=== PATIENT | female | born 1990 | race Caucasian/White ===

== ENCOUNTER 2017-05-27 22:06 | Emergency (ER) | payer OTHER ==
[2017-05-27 22:19] VITALS: BP 131/77; PULSE 109; RESP 20; TEMP 100.3
[2017-05-27] MEDS ORDERED: TOPICAL SKIN ADHESIVE 1 EACH AMP TOPICAL ONE (22:21)
--- NOTE | 2017-05-27 22:24 | ED ---
General Adult HPI - General Chief complaint: Wound/Laceration Stated complaint: [facility] Laceration rt index Time Seen by Provider: 05/27/17 22:19 Source: patient, RN notes reviewed Mode of arrival: ambulatory Limitations: no limitations - History of Present Illness Initial comments: Patient 26-year-old female who presents emergency room today with a chief complaint of laceration to the right index finger. She does admit that she at work when she picked up a gold causing a laceration to the distal aspect. She states her tetanus is up-to-date. She denies any other complaints or associated symptoms. Patient denies any recent fever, chills, shortness of breath, chest pain, back pain, abdominal pain, nausea or vomiting, numbness or tingling, dysuria or hematuria, constipation or diarrhea, headaches or visual changes, or any other complaints. - Related Data Allergies Allergy/AdvReac Type Severity Reaction Status Date / Time Penicillins Allergy Rash/Hives Verified 05/27/17 22:19 Review of Systems ROS Statement: Those systems with pertinent positive or pertinent negative responses have been documented in the HPI. ROS Other: All systems not noted in ROS Statement are negative. Past Medical History Past Medical History: No Reported History History of Any Multi-Drug Resistant Organisms: None Reported Past Surgical History: No Surgical Hx Reported Past Psychological History: Anxiety, Depression Smoking Status: Current every day smoker Past Alcohol Use History: Occasional Past Drug Use History: None Reported General Exam - General Exam Comments Initial Comments: General: The patient is awake and alert, in no distress, and does not appear acutely ill. Eye: Pupils are equal, round and reactive to light, extra-ocular movements are intact. No nystagmus. There is normal conjunctiva bilaterally. No signs of icterus. Ears, nose, mouth and throat: There are moist mucous membranes and no oral lesions. Neck: The neck is supple, there is no tenderness or JVD. Cardiovascular: There is a regular rate and rhythm. No murmur, rub or gallop is appreciated. Respiratory: Lungs are clear to auscultation, respirations are non-labored, breath sounds are equal. No wheezes, stridor, rales, or rhonchi. Musculoskeletal: Normal ROM, no tenderness. Strength 5/5. Sensation intact. Pulses equal bilaterally 2+. Neurological: A&O x 3. CN II-XII intact, There are no obvious motor or sensory deficits. Coordination appears grossly intact. Speech is normal. Skin: Patient does have small laceration to the distal aspect of the right index finger in the volar aspect. No Bleeding. Measures approximately 0.5 cm. Psychiatric: Cooperative, appropriate mood & affect, normal judgment. Limitations: no limitations Course Vital Signs 05/27/17 22:15 Temperature 100.3 F H Pulse Rate 109 H Respiratory 20 Rate Blood Pressure 131/77 O2 Sat by Pulse 98 Oximetry Procedures - Procedures Initial comment: Laceration cleaned here in the emergency room with saline. Wound edges approximated and closed with Dermabond. Patient tolerated well. Medical Decision Making - Medical Decision Making Patient laceration prepped and cleaned and closed with Dermabond here the emergency room. Tetanus is up-to-date. Patient will be discharged home. Disposition Clinical Impression: Finger laceration, Laceration Disposition: HOME SELF-CARE Condition: Good Instructions: Laceration (ED) Additional Instructions: Please allow the glue to fall off on its own over the next 2-5 days. Please watch for any signs of infection which may include increased pain, swelling, redness, fever or chills. Please return to emergency room for any other concerns. Referrals: Rip Valles MD [Primary Care Provider] - 1-2 days Time of Disposition: 22:23
== END 2017-05-27 22:45 | disposition home or self-care (01) ==
LOC: EC 22:06
DX: S61.210A Laceration without foreign body of right index finger without damage to nail, initial encounter (principal); F17.200 Nicotine dependence, unspecified, uncomplicated; Z88.0 Allergy status to penicillin; W26.8XXA Contact with other sharp object(s), not elsewhere classified, initial encounter; Y99.0 Civilian activity done for income or pay; Y92.69 Other specified industrial and construction area as the place of occurrence of the external cause
CPT/HCPCS: 12001; 99282

== ENCOUNTER 2023-11-01 19:25 | Emergency (ER) | payer OTHER, BC ==
--- NOTE | 2023-11-01 19:55 | XR ---
EXAMINATION TYPE: XR wrist complete RT DATE OF EXAM: 11/01/2023 7:47 PM CLINICAL INDICATION:Female, 33 years old with history of pain; COMPARISON: None TECHNIQUE: XR wrist complete RT; examined in the Frontal, navicular, lateral, and oblique. FINDINGS/IMPRESSION: 1. Acute Comminuted distal right radius fracture with dorsal angulation. 2. Acute right ulnar styloid process fracture without significant displacement.
[2023-11-01] MEDS ORDERED: SODIUM CHLORIDE 0.9% 1,000 ML IV STA (20:26)
[2023-11-01] MEDS ORDERED: HYDROmorphone 0.5 MG/0.5 ML SYRINGE IVP STA (21:12)
[2023-11-01] MEDS ORDERED: PROPOFOL 10 MG/ML 20 ML VIAL IV STA (21:17)
--- NOTE | 2023-11-01 21:23 | ED ---
Upper Extremity HPI <Thom Causey - Last Filed: 11/01/23 23:22> - General Source: patient, family, RN notes reviewed Mode of arrival: ambulatory Limitations: no limitations <Paris Gimenez - Last Filed: 11/01/23 23:48> - General Chief Complaint: Extremity Injury, Upper Stated Complaint: fall-workers comp Time Seen by Provider: 11/01/23 19:46 - History of Present Illness Initial Comments: Patient is a 33-year-old female presenting to the ER with a chief complaint of right wrist injury. Patient states she slipped on ice and fell landing on her back. Patient does not know how she fell on her wrist. Patient denies any head injury, loss of consciousness, blood thinner use. Patient denies any other injuries. She does state that as long as she is not moving it and there is ice pain is tolerable at this time. No other complaints (Paris Gimenez) - Related Data Allergies Allergy/AdvReac Type Severity Reaction Status Date / Time Penicillins Allergy Rash/Hives Verified 11/01/23 19:33 Review of Systems ROS Other: All systems not noted in ROS Statement are negative. <Thom Causey - Last Filed: 11/01/23 23:22> ROS Other: All systems not noted in ROS Statement are negative. <Paris Gimenez - Last Filed: 11/01/23 23:48> ROS Statement: Those systems with pertinent positive or pertinent negative responses have been documented in the HPI. Past Medical History Past Medical History: No Reported History History of Any Multi-Drug Resistant Organisms: None Reported Past Surgical History: No Surgical Hx Reported Past Psychological History: Anxiety, Depression Smoking Status: Current every day smoker Past Alcohol Use History: Occasional Past Drug Use History: None Reported <Paris Gimenez - Last Filed: 11/01/23 23:48> General Exam Limitations: no limitations General appearance: alert, in no apparent distress Head exam: Present: atraumatic, normocephalic, normal inspection Eye exam: Present: normal appearance, PERRL, EOMI. Absent: scleral icterus, conjunctival injection, periorbital swelling Pupils: Present: normal accommodation Neck exam: Present: normal inspection. Absent: tenderness, meningismus, lymph adenopathy Respiratory exam: Present: normal lung sounds bilaterally. Absent: respiratory distress, wheezes, rales, rhonchi, stridor Cardiovascular Exam: Present: regular rate, normal rhythm, normal heart sounds. Absent: systolic murmur, diastolic murmur, rubs, gallop, clicks Right Elbow exam: Present: normal inspection, full ROM Forearm Wrist exam: Present: tenderness, swelling, ecchymosis, deformity (Noticeable deformity to radial head), other (Pain with movement of thumb.) Neurological exam: Present: alert, oriented X3, CN II-XII intact Psychiatric exam: Present: normal affect, normal mood Skin exam: Present: warm, dry, intact, normal color. Absent: rash <aPris Gimenez - Last Filed: 11/01/23 23:48> Course Vital Signs 11/01/23 11/01/23 11/01/23 19:31 20:33 21:00 Temperature 98.3 F Pulse Rate 102 H 99 107 H Respiratory 20 20 16 Rate Blood Pressure 125/93 148/102 157/95 O2 Sat by Pulse 100 98 99 Oximetry 11/01/23 11/01/23 11/01/23 21:15 21:29 21:30 Temperature Pulse Rate 93 96 80 Respiratory 18 18 18 Rate Blood Pressure 139/95 161/97 136/68 O2 Sat by Pulse 98 99 97 Oximetry 11/01/23 11/01/23 11/01/23 21:35 21:40 21:50 Temperature Pulse Rate 96 101 H 80 Respiratory 16 16 16 Rate Blood Pressure 127/74 126/73 130/82 O2 Sat by Pulse 99 98 100 Oximetry 11/01/23 21:57 Temperature Pulse Rate 107 H Respiratory 16 Rate Blood Pressure 149/86 O2 Sat by Pulse 99 Oximetry Procedures - Procedural Sedation *Procedural Sedation Start Time: 21:29 *Procedural Sedation Stop Time: 21:59 *Risks,benefits, and alternative therapies discussed?: Yes *Patient indicates understanding of risk/benefit discussion?: Yes *Indications: fracture/dislocation reduction *Previous Adverse Reaction to Anesthesia/Sedation?: No * Testing Complete?: No Reason Test Not Complete:: Emergent Situation *ASA Class: I *Mallampati Airway Score: 2 *Time of Last PO Intake: 16:30 Preparation: bleaching machine operator applied, pulse oximeter, capnometry used, supplemental O2 applied, suction/airway equipment at bedside, IV secured Ketamine: IV Ketamine Dose: 50 IV Propofol Dose (mgs): 130 Complications: none Patient Tolerated Procedure: well <Thom Causey - Last Filed: 11/01/23 23:22> - Orthopedic Fracture Reduction Fracture #1 Consent Obtained: written consent Side: right Fracture Reduction Location: radius Analgesia: procedural sedation Technique: direct manipulation Post Reduction X-rays Demonstrate: acceptable reduction Post-Reduction Neuro Exam: intact Post-Reduction Vascular Exam: intact Splint Applied: Yes (ulnar gutter and sugar tong ) Patient Tolerated Procedure: well, no complications <Paris Gimenez - Last Filed: 11/01/23 23:48> Medical Decision Making - Radiology Data Radiology results: report reviewed, image reviewed <KennyParis tang - Last Filed: 11/01/23 23:48> - Medical Decision Making Was pt. sent in by a medical professional or institution (Dr. PA, [employer], urgent care, hospital, or retirement...) When possible be specific @ -No Did you speak to anyone other than the patient for history (EMS, parent, family, police, friend...)? What history was obtained from this source @ -No Did you review nursing and triage notes (agree or disagree)? Why? @ -I reviewed and agree with nursing and triage notes Were old charts reviewed (outside hosp., previous admission, EMS record, old EKG, old radiological studies, urgent care reports/EKG's, retirement records)? Report findings @ -No old charts were reviewed Differential Diagnosis (chest pain, altered mental status, abdominal pain women, abdominal pain men, vaginal bleeding, weakness, fever, dyspnea, syncope, headache, dizziness, GI bleed, back pain, seizure, CVA, palpatations, mental health, musculoskeletal)? @ -Differential Musculoskeletal Muscular strain, contusion, ligament sprain, fracture, arthritis, septic arthritis, bursitis, cellulitis, muscle spasm, nerve compression, DVT, arterial occlusion, herpes zoster, electrolyte abnormality, tumor.... This is not meant to be in all inclusive list EKG interpreted by me (3pts min.). @ -None X-rays interpreted by me (1pt min.). @ -Right wrist x-ray shows a comminuted distal radius fracture with dorsal angulation. There is also a right ulnar styloid process fracture without significant displacement CT interpreted by me (1pt min.). @ -None done U/S interpreted by me (1pt. min.). @ -None done What testing was considered but not performed or refused? (CT, X-rays, U/S, labs)? Why? @ -CT brain was considered but not performed due to negative head injury, loss of consciousness, blood thinner use. What meds were considered but not given or refused? Why? @ -None Did you discuss the management of the patient with other professionals (professionals i.e. , PA, [employer], lab, RT, psych nurse, social worker assistant, financial data analyst, teacher, parcel post officer, correctional case records supervisor)? Give summary @ -No Was smoking cessation discussed for >3mins.? @ -No Was critical care preformed (if so, how long)? @ -No Were there social determinants of health that impacted care today? How? (Homelessness, low income, unemployed, alcoholism, drug addiction, transportation, low edu. Level, literacy, decrease access to med. care, detention, rehab)? @ -No Was there de-escalation of care discussed even if they declined (Discuss DNR or withdrawal of care, Hospice)? DNR status @ -No What co-morbidities impacted this encounter? (DM, HTN, Smoking, COPD, CAD, Cancer, CVA, ARF, Chemo, Hep., AIDS, mental health diagnosis, sleep apnea, morbid obesity)? @ -None Was patient admitted / discharged? Hospital course, mention meds given and route, prescriptions, significant lab abnormalities, going to OR and other pertinent info. @ -Discharge. Patient is a 33-year-old female presented to ER with a chief complaint of right wrist injury. Vitals stable. History and physical exam were completed. Patient's right upper extremity was neurovascularly intact. There was noticeable deformity to radial head with mild ecchymosis present. Patient denied any head injury, loss of consciousness, blood thinner use, or other injuries. Right wrist x-ray shows a comminuted distal radius fracture with dorsal angulation. There is also a right ulnar styloid process fracture without significant displacement. Fracture was reduced by Dr. Causey with conscious sedation. Sugar-tong and ulnar gutter splints placed. Sling in place. Patient tolerated procedure well. Postreduction films show improved alignment. Patient was monitored post sedation. Patient was able to walk to bathroom without difficulty at discharge. Patient discharged with Tylenol 3's for pain control. Advised her to follow-up with orthopedics in the next 1 to 2 days. Return parameters were discussed. Patient be discharged stable condition with follow- up to orthopedics/PCP. Patient expressed understanding and agreement with care plan. Undiagnosed new problem with uncertain prognosis? @ -No Drug Therapy requiring intensive monitoring for toxicity (Heparin, Nitro, Insulin, Cardizem)? @ -No Were any procedures done? @ -Yes Diagnosis/symptom? @ -Distal right radius fracture/ulnar styloid process fracture Acute, or Chronic, or Acute on Chronic? @ -Acute Uncomplicated (without systemic symptoms) or Complicated (systemic symptoms)? @ -Uncomplicated Side effects of treatment? @ -No Exacerbation, Progression, or Severe Exacerbation? @ -No Poses a threat to life or bodily function? How? (Chest pain, [place], [place], pneumonia, PE, COPD, DKA, ARF, appy, cholecystitis, CVA, Diverticulitis, Homicidal, Suicidal, threat to staff... and all critical care pts) @ -No (Paris Gimenez) Disposition <Thom Causey - Last Filed: 11/01/23 23:22> Is patient prescribed a controlled substance at d/c from ED?: No Time of Disposition: 23:37 <Paris Gimenez - Last Filed: 11/01/23 23:48> Clinical Impression: Distal radius fracture, right Disposition: HOME SELF-CARE Instructions (If sedation given, give patient instructions): Wrist Fracture in Adults (ED), Moderate Sedation (ED) Additional Instructions: Please follow-up with orthopedics in the next 1 to 2 days. Return to ER for any new or worsening symptoms. Referrals: Rip Valles MD [Primary Care Provider] - 1-2 days Johan Lowe MD [STAFF PHYSICIAN] - 1-2 days
[2023-11-01] MEDS ORDERED: PROPOFOL 10 MG/ML 20 ML VIAL IV ONE (21:35)
[2023-11-01] MEDS ORDERED: KETAMINE 10 MG/ML 20 ML VIAL IV STA (21:50)
--- NOTE | 2023-11-01 22:28 | XR ---
EXAM: XR Right Forearm, 2 Views CLINICAL HISTORY: ITS.REASON XR Reason: POST REDUCTION TECHNIQUE: Frontal and lateral views of the right forearm. COMPARISON: No relevant prior studies available. FINDINGS: Bones/joints: Comminuted distal radial metaphyseal fracture with moderate angulation. Minimally displaced ulnar styloid fracture. Images taken through a splint limits fine bony detail. Soft tissues: Unremarkable. IMPRESSION: Comminuted distal radial metaphyseal fracture with moderate angulation.
[2023-11-01] MEDS ORDERED: ACET/COD 300 MG/30 MG STARTER PACK 6 TAB BTL PO STA (23:37)
[2023-11-02 00:13] VITALS: BP 135/78; PULSE 78; RESP 18; TEMP 98
== END 2023-11-02 00:07 | disposition home or self-care (01) ==
LOC: EC 19:25
DX: S52.591A Other fractures of lower end of right radius, initial encounter for closed fracture (principal); S52.611A Displaced fracture of right ulna styloid process, initial encounter for closed fracture; F17.200 Nicotine dependence, unspecified, uncomplicated; Z86.59 Personal history of other mental and behavioral disorders; Z88.0 Allergy status to penicillin; W00.0XXA Fall on same level due to ice and snow, initial encounter
CPT/HCPCS: 73090; 73110; 99284; 96374; 96375; 96361; 25605; 99152; J2704; J1170

== ENCOUNTER → 2023-11-18 | Day surgery (SDC) | payer BC, OTHER ==
[2023-11-14 15:08] VITALS: BMI 31.8
[~2023-11-18] MED LIST: ACETAMINOPHEN IV (For NPO) 1,000 MG/100 ML VIAL ONE; DEXAMETHASONE SOD PHOSPHATE 4 MG/ML 1 ML VIAL IV ONE; HYDROmorphone 0.5 MG/0.5 ML SYRINGE IVP PRN; LIDOCAINE 1%-EPI 1:100,000 20 ML VIAL ONE; MIDAZOLAM 2 MG/2 ML VIAL IV PRN; PROPOFOL 10 MG/ML 20 ML VIAL IV ONE; ROPIVACAINE 5 MG/ML 30 ML VIAL ONE; SCOPOLAMINE 1 MG/72 HR PATCH TRANSDERM ONE
[2023-11-18] MEDS: LACTATED RINGERS 1,000 ML IV SCH (11:10)
[2023-11-18] MEDS: ONDANSETRON 4 MG/2 ML VIAL IVP ONE (11:35)
[2023-11-18 11:36] VITALS: RESP 16
[2023-11-18] MEDS: BUPIVACAINE (PF) 0.5% 30 ML VIAL SQ ONE (13:00)
[2023-11-18] MEDS: LIDOCAINE 2% INJ 20 MG/ML SQ ONE (13:00)
[2023-11-18] MEDS: ceFAZolin 1,000 MG in SODIUM CHLORIDE 0.9% 1,000 ML IRRIGATION ONE ×2 (13:24→13:57)
[2023-11-18] MEDS: LACTATED RINGERS 1,000 ML IV ONE (13:57)
--- NOTE | 2023-11-18 13:58 | P.ANPRN ---
Procedure Note - Anesthesia - Nerve Block Performed Right Axillary Single Time Out Performed: Yes Date of Procedure: 11/18/23 Procedure Start Time: 12:37 Procedure Stop Time: 12:48 Indication: Requested by Surgeon Sedation Type: Awake Preparation: Sterile Prep Position: Supine Needle Gauge: 21 Ultrasound used to visualize needle placement: Yes Ultrasound used to observe medication spread: Yes Injectate: 0.5% Ropivacaine (see comment for volume) (25 mls) Blood Aspirated: No Pain Paresthesia on Injection Noted: No Resistance on Injection: Normal Image Stored and Saved: Yes Events: Uneventful and Well Tolerated
--- NOTE | 2023-11-18 14:00 | P.ANPRN ---
Procedure Note - Anesthesia - Nerve Block Performed Right Supraclavicular Single Time Out Performed: Yes Date of Procedure: 11/18/23 Procedure Start Time: 11:54 Procedure Stop Time: 12:03 Location of Patient: PreOp Indication: Acute Post-Operative Pain, Requested by Surgeon Sedation Type: Sedate with meaningful contact maintained Preparation: Sterile Prep Position: Supine Needle Types: Pajunk Needle Gauge: 21 Ultrasound used to visualize needle placement: Yes Ultrasound used to observe medication spread: Yes Injectate: 0.5% Ropivacaine (see comment for volume) (12 ml + 12ml Lidocaine 1% with epi 1/200K) Blood Aspirated: No Pain Paresthesia on Injection Noted: No Resistance on Injection: Normal Image Stored and Saved: Yes Events: Uneventful and Well Tolerated
--- NOTE | 2023-11-18 14:42 | P.OP ---
Date of Procedure: 11/18/23 Procedure(s) Performed: PREOPERATIVE DIAGNOSES: 1. Left wrist distal radius comminuted extraarticular displaced fracture 2. Left wrist ulnar styloid minimally displaced fracture POSTOPERATIVE DIAGNOSES: 1. Left wrist distal radius comminuted extraarticular displaced fracture 2. Left wrist ulnar styloid minimally displaced fracture PROCEDURES PERFORMED: 1. Left distal radius open reduction and internal fixation with volar locking plate 2. Closed treatment ulnar styloid fracture ANESTHESIA: Regional with IV sedation PHARMACEUTICAL OFFICER: Shannon Miranda PA-C (Assistance with: patient positioning, retraction, exposure, reduction, fixation, irrigation, hemostasis, closure, dressing, splint) COMPLICATIONS: None ESTIMATED BLOOD LOSS: 10 mL DISPOSITION: To post-anesthesia care unit INDICATIONS: Samanta is a 33 year old female who has had a displaced distal radius fracture and minimally displaced ulnar styloid fracture from a fall. A reduction was performed but the fracture is still displaced and shows unacceptable displacement and angulation. We have discussed options and I have recommended ORIF of the distal radius. She wishes to proceed. I discussed the steps of the surgery as well as potential risks and complications as being inclusive of, but not limited to: Bleeding, infection, scarring, discomfort, malunion, nonunion, blood vessel and/or nerve damage, need for further surgery, stiffness, tendon injury, persistence or recurrence of symptoms, complex regional pain syndrome and other risks. The patient is aware of these risks and wishes to proceed with surgery. The consent form has been signed. PROCEDURE: After appropriate consent was obtained, the patient was taken to the operating room placed in the supine position. Anesthesia was initiated, and after confirmation of adequate anesthesia, the patient was carefully positioned. Care was taken to make sure that all pressure points were adequately padded. Timeout was called, confirming patient identity, side, procedure, and antibiotics were administered. Limb was exsanguinated with an Esmarch bandage and the tourniquet was inflated to 250 mmHg. Total tourniquet time for the case was approximately 35 minutes. Incision was created just radial to the flexor carpi radialis tendon. Dissection proceeded between this tendon and the radial artery, which was carefully dissected and protected throughout the case. Dissection proceeded through the deep sheath of the FCR and the flexor pollicis longus tendon was noted. It was gently pushed in the ulnar direction and the pronator quadratus was noted. The wrist was rotated and the PQ was released radially from its attachment to the radius and dissected off the bone with an elevator. Good exposure of the fracture site was accomplished but with careful preservation of the volar joint capsule and ligaments. Reduction was accomplished with careful but deliberate manual manipulation at the fracture site until an acceptable reduction had been accomplished. The preliminary reduction was held with a 1.6 mm pin and mini-c-arm was used to assess the reduction. Adjustments to the reduction were made as needed. Retractors were placed on the ulnar side of the bone and a volar locking plate from [employer] (2.4 mm variable angle two column plate) was utilized and applied and pinned provisionally to the bone. Mini C- arm imaging was used to guide positioning of the plate until it was in a good position. A distal non-locking screw was then placed to bring the distal fragment to the plate. The proximal slotted screw was then filled. This screw had bicortical purchase. Distal row of locking screws was placed with assistance of the standard position guide. Each screw was sequentially checked for placement and position with mini-c-arm to make sure there was no penetration to the dorsal surface. Once these screws were placed, another proximal screw was placed in the plate and then the final mini-c-arm images were taken and saved. The ulnar styloid fracture remained in a minimally displaced position and was therefore treated nonoperatively. Thorough irrigation was performed using normal saline. Tourniquet was deflated and combination of electrocautery and pressure was used for hemostasis. Finger capillary refill was less than 2 seconds and there was no evidence of any pulsatile bleeding. Closure was performed of the incision with 3-0 Vicryl subq followed by 3-0 monocryl for the skin and cyanoacrylate topical closure. Sterile dressing was applied and further pressure was held over the wound for 3 minutes for additional hemostasis. Vascular status remained good with less than 2 second capillary refill. Well padded well molded volar splint was applied with plaster slab. Patient tolerated the procedure well and taken to recovery room in stable condition. Counts were correct.
[2023-11-18 15:07] VITALS: TEMP 97
[2023-11-18 15:37] VITALS: BP 114/78; PULSE 76
--- NOTE | 2023-11-18 16:45 | US ---
EXAMINATION TYPE: Transabdominal DATE OF EXAM: 11/18/2023 4:14 PM COMPARISON: NONE CLINICAL INDICATION: Female, 33 years old with history of POST OPERATIVELY PER DR. AVALOS; Patien t had surgery today for fractured wrist, spotting after US 2 days ago, no pain, EXAM PERFORMED: OBTA EXAM MEASUREMENTS: GESTATIONAL AGE / DATING Physician Established: Not yet established Dates by LMP: (11 weeks/ 2 days) EDC: 06/06/2024 Dates by First Scan: No previous this is first scan Dates by Current Scan for: (5 weeks/3 days) EDC: 07/17/2024 MATERNAL ANATOMY Uterus: 8.1 x 5.2 x 3.9cm Right Ovary: 2.6 x 1.7 x 1.6cm Left Ovary: 3.0 x 2.5 x 2.1cm Post CDS / Adnexa: wnl Presence of free fluid: no Presence of corpus luteal cyst: not seen Presence of subchorionic bleed: no GESTATION / SURVEY CRL: too early MSD: 0.8 (5 weeks/3 days) Yolk Sac (normal less than 6mm): too early IUP: gestational sac only seen today Date of LMP: 08/31/2023 Dr Avalos requested to be called with results. Called office at 4:20 and office is closed. No con tact number given on order. Patient sent home. IMPRESSION: 1. Small anechoic intrauterine cystic structure without evidence for yolk sac or pole at this t buck. This is thought to represent an early gestational sac with a positive beta hCG, however ectopic and abnormal intrauterine cannot be ruled out based on this exam alone. Follow-up with pelvic ultrasound in 7-10 days and serial beta-hCG studies are recommended to en sure further d evelopment of the fetus.
== END | disposition home or self-care (01) ==
LOC: OR 10:55
PROVIDERS: ATTEND Orthopaedic Surgery
DX: S52.502A Unspecified fracture of the lower end of left radius, initial encounter for closed fracture (principal); W19.XXXA Unspecified fall, initial encounter
CPT/HCPCS: 25607; 64415; 76801; C1713; J2405; J0690; J2795; J0131; J2704

== ENCOUNTER 2025-01-21 05:53 | Inpatient (IN) | payer BC, OTHER ==
[2025-01-21] MEDS ORDERED: VANCOMYCIN IV PER PHARMACY 1 EACH MISC MISCELLANE PRN (06:31)
[2025-01-21] MEDS ORDERED: miSOPROStoL 200 MCG TAB PO PRN (06:54)
[2025-01-21] MEDS ORDERED: miSOPROStoL 200 MCG TAB RECTAL PRN (06:54)
[2025-01-21] MEDS ORDERED: OXYTOCIN 10 UNIT/ML 1 ML VIAL IM PRN (06:54)
[2025-01-21] MEDS ORDERED: CARBOPROST TROMETHAMINE 250 MCG/ML 1 ML AMP IM PRN (06:54)
[2025-01-21] MEDS ORDERED: METHYLERGONOVINE 0.2 MG/ML 1 ML AMP IM PRN (06:54)
[2025-01-21] MEDS ORDERED: TRANEXAMIC 1,000 MG/100ML-NACL 1,000 MG in EMPTY BAG 1 BAG IV PRN (06:54)
[2025-01-21] MEDS ORDERED: TERBUTALINE 1 MG/ML VIAL SQ PRN (06:54)
[2025-01-21 07:05] LABS: Basophils # (A) 0.02 10*3/uL (0.00-0.10); Basophils % (A) 0.3 %; Eosinophils # (A) 0.05 10*3/uL (0.04-0.35); Eosinophils % (A) 0.7 %; HGB 11.6 g/dL (12.0-15.0); Lymphocytes # (A) 2.35 10*3/uL (0.90-5.00); Lymphocytes % (A) 30.6 %; MCH 29.5 pg (27.0-32.0); MCHC 33.1 g/dL (32.0-37.0); MCV 89.1 fL (80.0-97.0); Mean Platelet Volume 12.6 fL (9.5-12.2); Monocytes # (A) 0.51 10*3/uL (0.20-1.00); Monocytes % (A) 6.6 %; Neutrophils # (A) 4.71 10*3/uL (1.80-7.70); Neutrophils % (A) 61.4 %; Platelet Count 169 10*3/uL (140-440); RBC 3.93 10*6/uL (4.10-5.20); WBC 7.67 10*3/uL (4.50-10.00)
[2025-01-21] MEDS: LACTATED RINGERS 1,000 ML IV SCH (07:09)
[2025-01-21] MEDS: OXYTOCIN 30 UNITS/500 ML NS 30 UNIT in SALINE 1 500ML.BAG IV SCH (07:09)
[2025-01-21] MEDS: VANCOMYCIN 1,750 MG in SODIUM CHLORIDE 0.9% 500 ML 500 ML IVPB SCH (07:12)
--- NOTE | 2025-01-21 08:41 | P.HPOB ---
History of Present Illness H&P Date: 01/21/25 Chief Complaint: elective induction of labor Ms. Cavazos is a 34 year old at 39 weeks and 3 days gestation with EDC of 01/25/2025 by LMP consistent with 8 week US who presents for elective induction of labor. The has been complicated by anatomical findi ng of 2 choroid plexus cysts and an echogenic intracardiac focus on US. The patient is status post [facility] consultation for these findings, who reassured her that in isolation with normal NIPT testing they were of little significance. The fetus is estimated to be approximately 8#8oz based on a 35w4d growth US. work-up: blood type A positive, antibody screen negative, rubella immune, VDRL non-reactive, HBsAg negative, HIV negative, HCV Ab non-reactive, gonorrhea negative, chlamydia negative, 1 hour GTT wnl, GBS positive, s/p Tdap. Obstetric history: 2 SABs Past Medical History Past Medical History: No Reported History Additional Past Medical History / Comment(s): rt wrist fx w/ fall at work x2, bruising rt hand History of Any Multi-Drug Resistant Organisms: None Reported Past Surgical History: No Surgical Hx Reported Additional Past Surgical History / Comment(s): teeth extractions-twilight sedation. ORIF right wrist Past Anesthesia/Blood Transfusion Reactions: No Reported Reaction Additional Past Anesthesia/Blood Transfusion Reaction / Comment(s): no hx blood transfusion Past Psychological History: Anxiety, Depression Smoking Status: Never smoker - Past Family History Mother Family Medical History: No Reported History Medications and Allergies Home Medications Medication Instructions Recorded Confirmed Type Vit No.179/Iron/Folic 1 each PO DAILY 11/14/23 01/21/25 History [ Tablet] Allergies Allergy/AdvReac Type Severity Reaction Status Date / Time Penicillins Allergy Rash/Hives Verified 01/21/25 06:17 Exam Vital Signs Temp Pulse Resp BP Pulse Ox 01/21/25 06:17 97.4 F L 96 16 125/87 97 Intake and Output 01/20/25 01/21/25 01/21/25 22:59 06:59 14:59 Other: Weight 102.965 kg Focused physical exam is performed. This is a healthy-appearing in no apparent distress. Breathing is non-labored. Abdomen is gravid and non-tender. Cervical exam is 2/60/-2. AROM is attempted with scant fluid return. Extremities non-tender and non-edematous. heart tones are Category I and tocometer is graphing contractions every 2-4 minutes. Results Result Diagrams: 01/21/25 06:20 Abnormal Lab Results - Last 24 Hours (Table) 01/21/25 Range/Units 06:20 RBC 3.93 L (4.10-5.20) 10*6/uL Hgb 11.6 L (12.0-15.0) g/dL Hct 35.0 L (37.2-46.3) % MPV 12.6 H (9.5-12.2) fL Assessment and Plan Assessment: 34 year old at 39 weeks and 3 days gestation presenting for elective induction of labor Plan: Admit, clear liquid diet, pitocin per protocol, epidural prn, continuous efm and tocometer
[2025-01-21] MEDS ORDERED: SODIUM CHLORIDE 0.9% 250 ML BAG ONE (11:53)
[2025-01-21] MEDS ORDERED: fentaNYL (PF) 50 MCG/ML 5 ML AMP ONE (11:53)
[2025-01-21] MEDS ORDERED: ROPIVACAINE 5 MG/ML 30 ML VIAL ONE (11:53)
[2025-01-21] MEDS: LIDOCAINE 0.5% (PF) 5 MG/ML (50 ML SDV) SQ PRN (18:38)
--- NOTE | 2025-01-21 18:59 | P.PROBDLV ---
Vaginal Delivery Note - . Vaginal Delivery Note: DATE OF SERVICE: 01/21/2025 PROCEDURE: Normal Vaginal Delivery ATTENDING: Dr. Citlali Avalos MD ESTIMATED BLOOD LOSS: 300 mL FINDINGS: VMI, Apgars 8/9. Weight 8 pounds and 9 ounces (3890 grams) PROCEDURE: Ms. Cavazos is a 34 year old at 39 weeks and 3 days presenting to labor and delivery for elective induction of labor. For further details, please review the admitting H&P. Pitocin was titrated per protocol. AROM was performed at 820 revealing clear amniotic fluid. The patient received epidural anesthesia per her request. The patient was completely dilated at 1740. She pushed effectively with Category I FHTs. A viable male was delivered at 1831. The was placed on the maternal abdomen and bulb suctioned. The was noted to be spontaneously crying. Cord was clamped and cut after a 60-second delay. The infant was handed off to the pediatric team. Placenta was delivered whole with gentle cord traction at 1835. Oxytocin was started to facilitate uterine tone. Uterine fundus was found to be firm and below the umbilicus upon fundal massage. Thorough examination of the cervix, vagina, periurethral area, and perineum revealed a midline second degree perineal laceration. The perineum was infiltrated with lidocaine and repaired with 2-0 Vicryl in the usual fashion. The patient is stable and allowed to begin the bonding process.
[2025-01-21] MEDS ORDERED: BENZOCAINE/MENTHOL SPRAY 1 GM/SPRAY AEROSOL TOPICAL PRN (19:00)
[2025-01-21] MEDS ORDERED: ZOLPIDEM 5 MG TAB PO PRN (19:00)
[2025-01-21] MEDS ORDERED: SIMETHICONE 80 MG CHEWABLE PO PRN (19:00)
[2025-01-21] MEDS ORDERED: HYDROCORTISONE 2.5% RECTAL CREAM 30 GM TUBE RECTAL PRN (19:00)
[2025-01-21] MEDS ORDERED: diphenhydrAMINE 25 MG CAP PO PRN (19:00)
[2025-01-21] MEDS ORDERED: diphenhydrAMINE 50 MG CAP PO PRN (19:00)
[2025-01-21] MEDS ORDERED: LANOLIN CREAM 1 GM TUBE TOPICAL PRN (19:00)
[2025-01-21] MEDS ORDERED: diphenhydrAMINE 50 MG/ML 1 ML VIAL IVP PRN ×2 (19:00)
[2025-01-21] MEDS: ACETAMINOPHEN TAB 500 MG TAB PO SCH (21:46)
[2025-01-21] MEDS: SENNOSIDES-DOCUSATE SODIUM 1 EACH TAB PO SCH (21:47)
[2025-01-22] MEDS: IBUPROFEN 800 MG TAB PO SCH (04:57)
[2025-01-22 06:09] LABS: Basophils # (A) 0.04 10*3/uL (0.00-0.10); Basophils % (A) 0.3 %; Eosinophils # (A) 0.06 10*3/uL (0.04-0.35); Eosinophils % (A) 0.4 %; HCT 32.7 % (37.2-46.3); HGB 10.6 g/dL (12.0-15.0); Lymphocytes # (A) 2.44 10*3/uL (0.90-5.00); Lymphocytes % (A) 17.1 %; MCH 29.1 pg (27.0-32.0); MCHC 32.4 g/dL (32.0-37.0); MCV 89.8 fL (80.0-97.0); Monocytes # (A) 0.79 10*3/uL (0.20-1.00); Monocytes % (A) 5.5 %; Neutrophils # (A) 10.91 10*3/uL (1.80-7.70); Neutrophils % (A) 76.4 %; Platelet Count 170 10*3/uL (140-440); RBC 3.64 10*6/uL (4.10-5.20); RDW 14.2 % (11.5-14.5); WBC 14.29 10*3/uL (4.50-10.00)
[2025-01-22 12:03] VITALS: PULSE 78
--- NOTE | 2025-01-22 12:48 | P.DS ---
Providers Date of admission: 01/21/25 05:53 Expected date of discharge: 01/22/25 Attending physician: Citlali Avalos MD Primary care physician: [facility] Course: The patient is doing well this morning and had no acute events overnight. She has no complaints this morning. She reports minimal lochia, passing flatus, voiding without difficulty, ambulating, and eating/drinking without nausea or vomiting. Infant doing well at bedside, s/p circumcision. She denies chest pain, shortness of breathing, fevers, or chills overnight. She denies pain or swelling in the legs. restrictions are reviewed with the patient including pelvic rest for 6 weeks. The patient is encouraged to call the office if she experiences any heavy bleeding, foul-smelling discharge, breast complaints, or any if she has any other concerns. She will follow up in the office in 6 weeks for exam. All questions are answered. Patient Condition at Discharge: Good Plan - Discharge Summary New Discharge Prescriptions: No Action Vit No.179/Iron/Folic [ Tablet] 1 each PO DAILY Discharge Medication List Vit No.179/Iron/Folic [ Tablet] 1 each PO DAILY 11/14/23 [History] Follow up Appointment(s)/Referral(s): Citlali Avalos MD [STAFF PHYSICIAN] - 03/05/25 11:15 am Activity/Diet/Wound Care/Special Instructions: Instructions 1. Do not begin any exercise program for 3 weeks. 2. Do not resume sexual relations for 6 weeks or longer if uncomfortable. 3. You may take tub baths or showers at any time. 4. You may use tampons if desired after 6 weeks. 5. Keep any areas repaired with stitches clean and dry. 6. If you are not nursing, wear a good fitting, supportive bra during the day and limit fluid intake for at least 1 week to prevent breast engorgement. 7. Call the office, , within the next week to make appointment for your 6 week checkup if it has not already been made. 8. Report any of the following occurrences to the doctor promptly: a. Heavy, excessive bleeding b. Chills, fever c. Burning or frequency of urination d. Pain or redness and breasts if nursing e. Increasing pain or swelling of vulva (stitches). In addition to the above instructions, the following additional should be followed: 1. No heavy lifting or straining (exercising) until after 6 week checkup. 2. Keep abdominal incision clean and dry: You may wear a dressing if more comfortable. 3. Make office appointment for 2 weeks after delivery date. Discharge Disposition: HOME SELF-CARE
[2025-01-22 16:01] VITALS: BP 132/87; RESP 17; TEMP 98.7
== END 2025-01-22 19:00 | disposition home or self-care (01) | DRG 807 ==
LOC: 4FBP 05:53
PROVIDERS: ADMIT Obstetrics & Gynecology; ATTEND Obstetrics & Gynecology
PROC: 3E033VJ Introduction of Other Hormone into Peripheral Vein, Percutaneous Approach (ICD-10-PCS; principal; 2025-01-21)
PROC: 10907ZC Drainage of Amniotic Fluid, Therapeutic from Products of Conception, Via Natural or Artificial Opening (ICD-10-PCS; principal; 2025-01-21)
PROC: 10E0XZZ Delivery of Products of Conception, External Approach (ICD-10-PCS; principal; 2025-01-21)
PROC: 0KQM0ZZ Repair Perineum Muscle, Open Approach (ICD-10-PCS; principal; 2025-01-21)
DX: O99.824 Streptococcus B carrier state complicating childbirth (principal); O35.03X0 Maternal care for (suspected) central nervous system malformation or damage in fetus, choroid plexus cysts, not applicable or unspecified; O35.BXX0 Maternal care for other (suspected) fetal abnormality and damage, fetal cardiac anomalies, not applicable or unspecified; O70.1 Second degree perineal laceration during delivery; Z3A.38 38 weeks gestation of pregnancy; Z86.59 Personal history of other mental and behavioral disorders; Z88.0 Allergy status to penicillin; Z3A.39 39 weeks gestation of pregnancy; Z37.0 Single live birth
CPT/HCPCS: 85025; 86850; 86900; 86901